=== PATIENT | male | born 1985 | race Caucasian/White ===

== ENCOUNTER 2019-04-25 23:36 | Inpatient (IN) | payer SELFPAY ==
[~2019-04-25] VITALS: Ht 165.1 cm; Wt 78.0 kg
[2019-04-25 23:46] VITALS: Ht 165.1 cm; Wt 78.0 kg
--- NOTE | 2019-04-26 00:01 | NUR ---
PATIENT PRESENTED TO THE ED WITH ETOH AND HALLUCINATIONS. PATIENT STATES HE IS HAS BEEN DRINKING FOR 15 DAYS NON STOP- AND HAS A HX OF ETOH ABUSE. PATIENT STATES HE HAS BEEN HAVING DIFFICULTY WITH A WOMAN HE JUST BROKE UP WITH AND HAVING A TOUGH TIME DEALING WITH IT. PATIENT BREATHING EVEN AND UNLABORED, NO OTHER S/S OF DISTRESS NOTED.
--- NOTE | 2019-04-26 00:05 | NUR ---
I WAS ATTEMTING TO START IV AND PATIENT TURNED ON ME TO COME AFTER ME. I RAN OUT OF THE ED BAY TO GET ASSISTANCE, PT WAS SEEN TEARING OFF ALL HIS MONITORS AND RUNNING DOWN THE HOSPITAL CORRIDORS. I CALLED SECURITY AND LEFT A MESSAGE- WAS UNABLE TO REACH A CABLE PLACER.
--- NOTE | 2019-04-26 00:15 | NUR ---
PT SEEN WALKING RAPIDLY DOWN HALLWAY TOWARDS ORTHO ROOM. MOTHER CHASING AFTER PT. NOTIFIED BY PRIMARY NURSE PT IS INTOXICATED. FOLLOWED PT. DOWN HALLWAY TOWARDS [place]. CALLING AT PT. MULTIPLE TIMES TO STOP AND RETURN TO ED. PT WALKED INTO [place]. PT WALKING AROUND [place] LOOKING FOR EXIT. ATTEMPTED TO TALK PT. DOWN AND ASKED FOR HIM TO RETURN TO ED SO WE CAN HELP HIM. PT OPENED DOOR TO EXIT CAFTERIA. HE REPEATEDLY AND FORCEFULL STARTING SLAMMING HEAD AND FACE INTO THE CORNER DOOR JAMB. TO PREVENT PT. FROM INJURYING HIMSELF I ATTEMPTED TO PULL PT. FROM DOOR WHEN HE BECAME COMBATIVE AND PULLED HIMSELF TOWARDS THE WALL AND AGAIN STARTED TO HIT HIS HEAD FORCEFULL AGAINST THE WALL. I AGAIN ATTEMPTED TO SECURE PT. TO PREVENT INJURY WHEN HE BECAMSE COMBATIVE. DR. RASMUSSEN AND SECURITY ARRIVED AND PT WAS SAFELY BROUGHT DOWN TO THE GROUND AND HELD FOR SAFETY WHILE STAFF BROUGHT GURNEY AND RESTRAINTS. PT PLACED ON GURNEY AND IN RESTRAINTS. MEDICATED WITH ATIVAN AND BROUGHT BACK TO ROOM 8.
--- NOTE | 2019-04-26 00:38 | NUR ---
MEDICATED PER MD ORDERS- PATIENT STILL COMBATIVE AND HAD ASSISTANCE HOLDING PATIENT DOWN.
--- NOTE | 2019-04-26 01:15 | NUR ---
PATIENT TAKEN TO XRAY FOR CT SCAN- WILL MONITOR UPON RETURN.
[2019-04-26 01:54] LABS: BASOPHIL % 0.5 % (0-2); PLATELET COUNT 178 x10^3mcL (130-400); RED CELL DISTRIBUTION WIDTH 14.2 % (11.5-14.5)
--- NOTE | 2019-04-26 02:14 | NUR ---
REPORT RECIEVED FROM [facility]. NURSING UPDATES. AWAITING PT ARRIVAL.
[2019-04-26 02:18] LABS: CALCIUM 8.2 mg/dL (8.5-10.1); CARBON DIOXIDE 27.9 mmol/L (21-32); CHLORIDE SERUM 104 mmol/L (98-107); GFR1 > 60 mL/min; GLUCOSE SERUM 116 mg/dL (74-106); POTASSIUM SERUM 3.4 mmol/L (3.5-5.1); SODIUM SERUM 141 mmol/L (136-145)
[2019-04-26 02:23] LABS: MAGNESIUM 2.1 mg/dL (1.8-2.4); PHOSPHOROUS 3.4 mg/dL (2.5-4.9)
[2019-04-26 02:31] LABS: ALBUMIN 3.4 g/dL (3.4-5.0); ALKALINE PHOSPHATASE 52 U/L (46-116); ALT/SGPT 223 U/L (16-63); AST/SGOT 144 U/L (15-37); BILIRUBIN TOTAL 0.4 mg/dL (0.20-1.00); TOTAL PROTEIN, SERUM 6.5 g/dL (6.4-8.2)
--- NOTE | 2019-04-26 03:00 | NUR ---
PT TRANSPORTED TO ICU VIA GURNEY ON CM BY JT CAMPOS AND CHELI EMT. PT IN NAD
--- NOTE | 2019-04-26 03:01 | NUR ---
PT ARRIVED FROM RN ACCOMPANIED BY RN. PT FULL CODE, [id number], SEDATED, ROMANIAN SPEAKING, BREATHING E/U ON RA, PULSES PALPABLE, NO EDEMA, CAP REFILL < 3 SEC, SINUS TACHY, SKIN INTACT W/ DISCOLORATION TO FOREHEAD FROM PREVIOUS INJURY, ABD SOFT & ROUND BS ACTIVE X4Q, PERIPHERAL IV LFA PATENT C/D/I, NO STATED PAIN, AWAITING URINE FROM PT, VELCO RESTRAINTS X 4EXTREMITIES.
[2019-04-26 03:12] VITALS: BP 146/98
--- NOTE | 2019-04-26 04:42 | NUR ---
PT RESTING COMFORTABLY IN BED W/ MOM @ BEDSIDE. NO ACUTE CHANGES. WILL CONT TO MONITOR.
[2019-04-26 05:52] LABS: microscopic required? NO
[2019-04-26 05:57] LABS: UA SPECIFIC GRAVITY 1.015 (1.005-1.035); urine erythrocyte NEGATIVE (NEGATIVE)
[2019-04-26 06:05] LABS: AMPHETAMINE QUAL UR NONE DETECTED (See below)
--- NOTE | 2019-04-26 06:38 | NUR ---
DR MABRY @ BEDSIDE. NURSING UPDATES. POC DISCUSSED. AWAITING ORDERS.
--- NOTE | 2019-04-26 07:02 | NUR ---
REPORT GIVEN TO BETH LINDSEY. NURSING UPDATES. POC DISCUSSED.
--- NOTE | 2019-04-26 07:08 | NUR ---
RECIEVED REPORT FROM BETH WOMACK TO ASSUME ALL CARES. ALL QUESTIONS AND CONCERNS ADDRESSED.
--- NOTE | 2019-04-26 07:10 | NUR ---
REMOVED RESTRAINTS TO BILATERAL LOWER EXTREMITIES. PT TOLERATING WELL. WILL CONT TO MONITOR.
[2019-04-26 07:21] VITALS: BP 128/84
--- NOTE | 2019-04-26 08:40 | NUR ---
PATIENT ROUNDS WITH DR. DUMONT AND RESIDENTS. CHARGE NURSE AND PRIMARY NURSE AT BEDSIDE. UPDATES PROVIDED AND POC DISCUSSED. WILL CONTINUE TO MONITOR.
--- NOTE | 2019-04-26 08:45 | NUR ---
BILATERAL VELCRO WRISTS RESTRAINTS REMOVED AT THIS TIME. PATIENT EDUCATED TO NOT GET OUT OF BED WITHOUT ASSISTANCE. PATIENT GESTURED UNDERSTANDING. WILL CONTINUE TO MONITOR.
[2019-04-26 13:20] VITALS: BP 125/77
--- NOTE | 2019-04-26 13:54 | NUR ---
ASSISTED PATIENT UP TO BSC, GAIT IS SLOW AND STEADY. WHEN PATIENT GOT BACK IN BED, IV TO RIGHT HAND NOTICED TO BE DISLODGED. PATIENT TRANSFERRED FROM BED TO LOUNGE CHAIR. IV TO RIGHT HAND DC'D WITH CATH TIP INTACT. PATIENT TOLERATED WELL. PATIENT CURRENTLY ON NASAL CANNULA AT 4LPM. VSS. WILL CONTINUE TO MONITOR.
--- NOTE | 2019-04-26 14:55 | NUR ---
RT LULU AT BEDSIDE AND JUST GAVE PATIENT A BREATHING TREATMENT. REAPPLIED THE NASAL CANNULA AND TITRATED IT DOWN TO 2 LPM. PATIENT REMAINS SITTING UP IN CHAIR. CURRENT 02 SAT 95%. NO SIGNS OF DISTRESS. WILL CONTINUE TO MONITOR.
--- NOTE | 2019-04-26 14:56 | NUR ---
PATIENT IS CALMLY LAYING IN BED VISITING WITH FAMILY AT BEDSIDE. PATIENT IS COOPERATIVE IN CARE. WILL CONTINUE TO MONITOR.
[2019-04-26 15:23] VITALS: BP 125/70
--- NOTE | 2019-04-26 16:01 | NUR ---
REPORT GIVEN TO BETH AGUILAR TO ASSUME ALL CARES. ALL QUESTIONS AND CONCERNS ADDRESSED.
--- NOTE | 2019-04-26 16:24 | NUR ---
PATIENT TRANSFERRED TO TELE VIA WHEELCHAIR ATTACHED TO TELE BOX ACCOMPANIED BY NURSE. VSS. ALL BELONGINGS SENT WITH PATIENT AND PATIENT'S MOTHER. NO INCIDENCE OCCURRED.
--- NOTE | 2019-04-26 17:15 | NUR ---
PT IS AAOX3-4 WITH MOMENTS OF MINOR CONFUSION. TELE [address] READING NSR. PT HAS ECCYMOSIS TO BUE. ABDOMEN SOFT, NONTENDER, NONDISTENDED. BOWEL SOUNDS ACTIVE. DENIES N/V. LUNG SOUNDS CTA. ON R/A. PERIPHERAL PULSES PALPABLE. NO EDEMA. IV CATH TO LFA WITH FLUIDS RUNNING, SITE WNL. DENIES PAIN. SEIZURE PRECAUTIONS IN PLACE. CALL LIGHT WITHIN REACH. FAMILY AT BEDSIDE.
--- NOTE | 2019-04-26 18:39 | NUR ---
PT IS AAOX3-4 WITH MOMENTS OF CONFUSION. DENIES H/A OR DIZZINESS. DENIES N/V. NO SEIZURE ACTIVITY. TELE [address] READING NSR. IVF RUNNING TO [facility]. SITE WNL. DENIES PAIN. CALL LIGHT WITHIN REACH. SEIZURE PRECAUTIONS IN PLACE. WILL ENDORSE ALL CARE TO NOC BETH.
--- NOTE | 2019-04-26 19:37 | NUR ---
RECEIVED PT FROM DAY SHIFT RN. PT AAOX4 DENIES HEADACHE OR DIZZINESS. TELE #2 SR HR 94, DENIES CHEST PAIN OR PRESSURE. BREATHING EVEN AND UNLABORED ON RA WITH NO SOB NOTED. ABD SOFT AND ROUND, ACTIVE BOWEL SOUNDS, DENIES ABD PAIN N/V. BUE ECHYMOSIS, ERYTHEMA WITH SCAB ON FORHEAD. IV LFA PATENT, INFUSING WELL. NO SIGNS OF ACUTE DISTRESS NOTED. SEIZURE/SAFETY PRECAUTIONS IN PLACE. FAMILY AT BEDSIDE. WILL CONTINUE TO MONITOR.
[2019-04-26 20:47] VITALS: BP 114/62
--- NOTE | 2019-04-26 23:19 | NUR ---
PT REPORTED HAVING TROUBLE SLEEPING, DR FLANAGAN MADE AWARE, MEDICATED PER EMAR. WILL MONITOR.
--- NOTE | 2019-04-27 00:13 | NUR ---
PT RESTING, BREATHING EVEN AND UNLABORED WITH NO SIGNS OF DISTRESS NOTED. IV PATENT, INFUSING WELL. SEIZURE/SAFETY PRECAUTIONS IN PLACE. WILL CONTINUE TO MONITOR.
--- NOTE | 2019-04-27 03:31 | NUR ---
ROUNDS MADE. PT RESTING, BREATHING EVEN AND UNLABORED WITH NO SIGNS OF DISTRESS NOTED. IV PATENT, INFUSING WELL. SAFETY PRECAUTIONS IN PLACE. WILL CONTINUE TO MONITOR.
--- NOTE | 2019-04-27 05:13 | NUR ---
PT SLEPT MOST OF THE NIGHT WITH NO SIGNS OF DISTRESS. BREATHING EVEN AND UNLABORED WITH NO SOB NOTED. IV PATENT, INFUSING WELL, NO SIGNS OF INFILTRATION NOTED. NO SIGNS OF ACUTE DISTRESS NOTED. SEIZURE/SAFETY PRECAUTIONS IN PLACE. WILL CONTINUE TO MONITOR AND ENDORSE CARE TO DAY SHIFT RN.
[2019-04-27 06:26] VITALS: BP 112/73
[2019-04-27 06:50] LABS: CALCIUM 8.7 mg/dL (8.5-10.1); CARBON DIOXIDE 25.7 mmol/L (21-32); CHLORIDE SERUM 106 mmol/L (98-107); CREATININE SERUM 0.8 mg/dL (0.7-1.3); GFR1 > 60 mL/min; GLUCOSE SERUM 98 mg/dL (74-106); MAGNESIUM 2.3 mg/dL (1.8-2.4); PHOSPHOROUS 4.4 mg/dL (2.5-4.9); POTASSIUM SERUM 3.8 mmol/L (3.5-5.1); SODIUM SERUM 141 mmol/L (136-145)
--- NOTE | 2019-04-27 07:32 | NUR ---
RECEIVED PATIENT FROM BETH APARICIO. PATIENT RESTING IN BED, NO SIGNS OF DT OR SZ. DENIES PAIN, DIZZINESS, NAUSEA. MOTHER AT BEDSIDE. CALL LIGHT IN REACH.
--- NOTE | 2019-04-27 07:34 | NUR ---
PT BREATHING EVEN AND UNLABORED WITH NO SIGNS OF DISTRESS. ENDORSED CARE TO DAY SHIFT RN, ALL QUESTIONS ADDRESSED.
[2019-04-27 08:42] LABS: BASOPHIL % 0.5 % (0-2); PLATELET COUNT 159 x10^3mcL (130-400)
[2019-04-27 09:02] LABS: RED CELL DISTRIBUTION WIDTH 15.3 % (11.5-14.5)
[2019-04-27 09:30] VITALS: BP 108/57
--- NOTE | 2019-04-27 10:08 | NUR ---
DR MELENDEZ & DR CLEMENTE IN TO SEE PATIENT. STATES PATIENT WOULD BE CLEARED FOR DISCHARGE TODAY. PATIENT IN BED, NO COMPLAINTS OF PAIN, NO SIGNS OF SZ OR HALLUCINATIONS. MOTHER AT BEDSIDE. CALL LIGHT IN REACH.
[2019-04-27] MEDS ORDERED: THI100 PO (12:25)
[2019-04-27] MEDS ORDERED: FOL1 PO (12:25)
[2019-04-27] MEDS ORDERED: THERA-M CAPLET1 EACH PO (12:26)
[2019-04-27] MEDS ORDERED: LIB25 PO (12:26)
[2019-04-27 12:31] VITALS: BP 108/57
[2019-04-27 13:00] VITALS: BP 120/68
--- NOTE | 2019-04-27 13:36 | NUR ---
1. Recommend continuing regular diet
--- NOTE | 2019-04-27 13:36 | NUR ---
Initial Nutrition Assessment: 216T/B JUWAN POON HR Dx: Delirium Tremens PMHx: Alcohol and Substance Abuse PSHx: None Labs: AST 144H, ALT 223H, ALK PH 52H Meds: Folic acid, theragran-M, Vitamin B-1, Zofran Diet: Regular PO Intake: 100% breakfast (04/27) Ht: 165.1 cm (65") Wt: 78 kg (172#) BMI: 28.6 kg/m2 (overweight) Bed scale: 81.2 kg IBW: 136# (62 kg) %IBW: 126 UBW: pt not aware Age: 33/M Food Allergies: NKFA Skin: BUE ecchymosis Raghu: 20 Edema: none GI: Last BM: 04/26 Per H&P, Patient is a 33 year old male with a PMH of alcohol and substance abuse comes in for hallucinations. The patient has been drinking 1L of vodka everyday for the past 15 days or so. The patient stopped drinking abruptly 2 days ago and started feeling very anxious according to his mother. RDN Visit(04/27): pt understood little Setswana. [employer] translate was used to convert to Portuguese. Per pt's mother, pt does not have any N/V/D/C at this time and pt has good appetite. Pt ate 100% breakfast this morning. Pt reported to have lost 10# in 15 days. Problem with: N/V/D/C: no Problems with: Chewing/Swallowing: no Current appetite: good Recent wt change: lost 10# x 15 days %wt change: 11% significant Vitamin/Supplement use: no Special diet at home: no Physical activity: no Nutrition education given: patient denied education, [facility] handout on "Sobriety Nutrition Therapy" was handed to pt's mother. Food-drug interactions: none Education given: no Estimated Nutritional Needs Based on ideal body weight 62 kg Energy: 6383-2650 kcal/d (25-30 kcal/kg) Protein: 62-74 g/d (1.0-1.2g/kg)- Fluid: 0243-7604 ml/d (1 ml/kcal) or per doctor Nutrition Diagnosis 1. Impaired nutrient utilization related to alcohol abuse as evidenced by AST 144, ALT 223. Intervention 1. Recommend continuing regular diet Monitor/Evaluate Goal: PO intake at least 75% of estimated needs Monitor: PO intake, Labs, GI function F/U in 7 days as low risk 05/04
--- NOTE | 2019-04-27 14:29 | NUR ---
PATIENT IN BED RESTING. SISTER AT BEDSIDE. DISCHARGE PACKET EXPLAINED TO PATIENT & SISTER. ALL QUESTIONS ANSWERED, PACKET & PRESCRIPTIONS GIVEN TO PATIENT. IV CATHETER REMOVED AND INTACT, WINDOW INSTALLER GIVEN TO MORENA ARTEAGA. PATIENT & SISTER W BELONGINGS ESCORTED DOWNSTAIRS W ROMAN ROBLES.
--- NOTE | 2019-04-27 14:34 | NUR ---
Discount pharmacy card and list to low cost medical clinics given to patient by Richelle Tierney.
== END 2019-04-27 14:28 | disposition home or self-care (01) | DRG 57 ==
LOC: ED 23:36 → DU 04-26 00:42 → IC 04-26 00:42 → DU 04-26 16:15
PROVIDERS: Emergency Medicine; ADMIT General Practice
DX: G31.2 Degeneration of nervous system due to alcohol (principal); F10.120 Alcohol abuse with intoxication, uncomplicated; E87.6 Hypokalemia; Y90.9 Presence of alcohol in blood, level not specified
CPT/HCPCS: 83880; G0480; J2060; J2250; J7030; J7040; Q0092